=== PATIENT | male | born 1990 | race Caucasian/White ===

== ENCOUNTER 2024-08-16 12:15 | Emergency (ER) | payer OTHER, SELFPAY ==
[2024-08-16 12:27] VITALS: BP 141/82; PULSE 81; RESP 20; TEMP 36.9; O2SAT 99
[2024-08-16 12:37] LABS: EDUAAPPEAR Clear; EDUABILI Negative (Negative); EDUABLOOD Negative (Negative); EDUACOLOR1 Yellow; EDUAGLUCOSE Negative (Negative); EDUAKETONE Negative (Negative); EDUALEUKO Negative (Negative); EDUANITRATE Negative (Negative); EDUAPROTEIN Negative (Negative); EDUAUROBILI 0.2
--- NOTE | 2024-08-16 19:20 | ED.MALEGU ---
HPI - Male Genitourinary General Chief complaint: Urogenital-Male Stated complaint: UTI Time Seen by Provider: 08/16/24 13:09 Source: patient and RN notes reviewed Mode of arrival: ambulatory Limitations: no limitations History of Present Illness HPI Narrative: Patient presents today complaining of a 4 to five-day history of intermittent dysuria and burning at the tip of his penis after urination. He also reports that at onset of symptoms he had some white discharge from the urethra, but this has since resolved. He denies any urgency, frequency, hematuria, testicular pain or swelling. He has increased his water intake and believes this may have helped. He denies any concerns for sexually transmitted infection. Related Data Home Medications Medication Instructions Recorded Confirmed No Home Medications 08/16/24 08/16/24 Review of Systems Review of Systems: CONSTITUTIONAL: Denies body aches, fever, chills, or sweats. EYES: Denies visual changes, redness, or discharge. ENT: Denies rhinorrhea, congestion, sore throat, or otalgia. CARDIOVASCULAR: Denies chest pain, palpitations, or edema. RESPIRATORY: Denies cough or dyspnea. GASTROINTESTINAL: Denies abdominal pain, nausea, vomiting, or diarrhea. GENITOURINARY: + dysuria, urethral discharge SKIN: Denies rash, itching, or wounds. MUSCULOSKELETAL: Denies back pain, joint pain, or myalgia. NEUROLOGIC: Denies headache, numbness, tingling, or weakness. PSYCH: Denies depression or anxiety. PMFSH Comments At time of signature, I have reviewed and agree with nursing past medical, surgical, social and family history unless otherwise noted. Please see nursing chart for further information. There is no relevant family history pertinent to the presenting complaint Exam Narrative: GENERAL: Well-appearing, well-nourished, and in no acute distress. HEAD: Normocephalic, atraumatic. EYES: EOMI. No redness or drainage. Conjunctivae normal. ENT: Mucous membranes pink and moist. NECK: Normal AROM. CHEST: No respiratory distress. Clear to auscultation. HEART: Regular rate and rhythm. No murmur appreciated. : Chaperoned by Reynaldo Wills RN. Urethral meatus is moderately erythematous with some clear discharge. Remainder of penis is normal. Scrotum also appears normal. EXTREMITIES: Normal range of motion. No edema. SKIN: Warm, dry, no rash. Capillary refill normal. Normal skin turgor. NEURO: No focal deficits. Alert and oriented x3. Gait steady. PSYCH: Normal affect. No signs of depression or anxiety. Course Course Level of Care: Express Care Visit Vital Signs Vital signs: Vital Signs Temperature 98.4 F 08/16/24 12:27 Pulse Rate 81 08/16/24 12:27 Respiratory Rate 20 08/16/24 12:27 Blood Pressure 141/82 H 08/16/24 12:27 Pulse Oximetry 99 08/16/24 12:27 Oxygen Delivery Room Air 08/16/24 12:27 Temperature 98.4 F 08/16/24 12:27 Pulse Rate 81 08/16/24 12:27 Respiratory Rate 20 08/16/24 12:27 Blood Pressure 141/82 H 08/16/24 12:27 Pulse Oximetry 99 08/16/24 12:27 Oxygen Delivery Room Air 08/16/24 12:27 Reviewed MDM - Male Genitourinary MDM Narrative Medical decision making narrative: Urinalysis is negative. Discussed results with patient as well as history of urethral discharge and redness around the urethral meatus, recommend testing for STI. Patient does agree, but does not want any prophylactic antibiotics at this time. Anticipatory guidance given. Lab Data Attestation: I reviewed the patient's lab results. Labs: Lab Results 08/16/24 08/16/24 Range/Units 12:34 13:25 POC Urine Color Yellow POC Urine Clarity Clear POC Urine pH 6.0 POC Ur Specif [place] 1.020 POC Urine Protein Negative (Negative) POC Ur Glucose (UA) Negative (Negative) POC Urine Ketones Negative (Negative) POC Urine Blood Negative (Negative) POC Urine Nitrite Negative (Negative) POC Urine Bilir
[2024-08-16 20:01] LABS: Trichomonas Vag PCR NOT DETECTED (NOT DETECTE)
[2024-08-16 20:25] LABS: Chlamydia trachomatis NOT DETECTED (NOT DETECTE); Neisseria gonorrhoeae PCR NOT DETECTED (NOT DETECTE)
== END 2024-08-16 13:30 | disposition home or self-care (01) ==
PROVIDERS: Emergency Provider Nurse Practitioner
DX: R30.0 Dysuria (principal); J45.909 Unspecified asthma, uncomplicated; Z86.16 Personal history of COVID-19
CPT/HCPCS: 81003; 87491; 87591; 87661; 99213; G0463